=== PATIENT | male | born 1955 | race Caucasian/White ===

== ENCOUNTER 2017-02-12 08:00 | Inpatient (IN) | payer OTHER ==
[2017-02-12 08:47] VITALS: BMI 42.8
[2017-02-19] MEDS ORDERED: CEFAZOLIN/Water 2 GM/20 ML SYRINGE ONE (06:01)
[2017-02-19] MEDS ORDERED: Tranexamic Acid 1,000 MG/100 ML BAG ONE ×2 (06:01→10:52)
[2017-02-19] MEDS ORDERED: Bupivacaine/Epinephrine 0.25% 30 ML VIAL ONE (06:16)
[2017-02-19] MEDS ORDERED: Fentanyl 100 MCG/2 ML VIAL ONE ×5 (06:26→09:41)
[2017-02-19] MEDS ORDERED: Midazolam HCl 2 mg/2 ml Vial ONE (06:26)
[2017-02-19] MEDS ORDERED: Lidocaine 1% (PF) 30 ML VIAL ONE (06:33)
[2017-02-19] MEDS ORDERED: Zolpidem Tartrate 5 MG TAB PO PRN ×3 (07:17→10:22)
[2017-02-19] MEDS ORDERED: traMADol HCl 50 MG TAB PO PRN ×3 (07:17→09:29)
[2017-02-19] MEDS ORDERED: Ondansetron HCl/PF 4 MG/2 ML Vial IVP PRN ×4 (07:17→10:22)
[2017-02-19] MEDS ORDERED: Promethazine HCl 25 MG/ML VIAL IM PRN ×4 (07:17→10:22)
[2017-02-19] MEDS ORDERED: HYDROcodone/Acetaminophen 10/325 mg Tablet PO PRN ×2 (07:17)
[2017-02-19] MEDS ORDERED: Fentanyl 100 MCG/2 ML VIAL IV PRN (07:18)
[2017-02-19] MEDS ORDERED: Bupivacaine PF 0.5% 30 ML VIAL ONE (07:21)
[2017-02-19] MEDS ORDERED: Acetaminophen 325 MG TAB PO PRN (09:29)
[2017-02-19] MEDS ORDERED: diphenhydrAMINE 25 MG CAP PO PRN ×2 (09:29→10:22)
[2017-02-19] MEDS ORDERED: Tranexamic Acid 1,000 MG in Sodium Chloride 0.9% 100 ML IVPB SCH (09:30)
[2017-02-19] MEDS ORDERED: HYDROmorphone 2 MG/ML VIAL SLOW IVP PRN (09:32)
[2017-02-19] MEDS ORDERED: Promethazine HCl 25 MG/ML VIAL SLOW IVP PRN (09:32)
[2017-02-19] MEDS ORDERED: CeleCOXIB 100 MG CAP PO PRN (09:33)
[2017-02-19] MEDS ORDERED: Morphine 4 MG/ML VIAL ONE (09:35)
--- NOTE | 2017-02-19 09:41 | OP ---
DATE OF PROCEDURE: 02/19/2017 PREOPERATIVE DIAGNOSIS: Left knee osteoarthrosis. POSTOPERATIVE DIAGNOSIS: Left knee osteoarthrosis. PROCEDURE PERFORMED: Left total knee replacement using MOBITRAC pin-less navigation. SURGEON: Holden Torres M.D. RESTAURANT SHIFT SUPERVISOR: Archie Lin PA-C. Complications: None. DISPOSITION: He did go to the recovery room in stable condition. ANESTHESIA: He had general anesthetic and he also had a preoperative block. IMPLANTS: Triathlon total knee system to the left knee and we used a size 6 cruciate retaining femur . We used a size 6 universal tibial baseplate. We used a 6 x 9 mm CSX3 tibial bearing and we used a n asymmetric X3 35 x 10 patella. INDICATIONS: A 61-year-old male who had his right knee replaced 2 years ago and at this time he is w anting to have his left knee replaced since everything else has failed to give him good pain relief. PROCEDURE IN DETAIL: After all appropriate consent forms were explained and signed, the patient was taken back to the Operating Room and at this time was given general anesthetic. Once the level of ane sthesia was appropriate, a well-padded tourniquet was placed on the right leg and the leg was then pr epped and draped in standard surgical fashion. The limb was exsanguinated and tourniquet taken up to 300 mmHg. Midline incision was made with a 10 blade down through the skin and subcutaneous tissue. Lance vie electrocautery was used to coagulate any brisk venous bleeding. A new blade was used to make a me dial parapatellar arthrotomy. Small subperiosteal release was performed medially and excess fat pad w as removed. The knee was flexed up to gain access to the femur. The femur was navigated and distal fe moral resection was made. Epicondylar access was used to align our sizing jig and this was pinned in place. We sized our femur to be a size 6, 4:1 cutting block was applied and pinned. Anterior and post erior chamfer cuts were then made. We navigated out our proximal tibia and made our proximal tibial r esection. Spreaders were used to remove any posterior osteophytes off the back of the femur as well a s remaining meniscal tissue. A long alignment tigre was then used to achieve correct rotation of our ti bial baseplate and a size 6 was chosen. This was pinned in place. We trialed the polyethylene and a 6 x 9 mm CSX3 polyethylene gave us full extension and good stability throughout range of motion. Two t owel clips and a saw were used to cut our patella. Three lug nuts were drilled and X3 35 x 10 patella was trialed which sat nicely in the trochlear groove. We then drilled our femur and punched our tibi a. All components were removed. The knee was thoroughly irrigated and dried. Cement was mixed into th e cement gun on the back table. Components were then placed. The knee was held out in full extension until the cement had dried. All excess bone cement was removed. Multiple #2 Vicryl stitches as well as a Quill was used to close our extensor mechanism. 0 Quill followed by a running Monoderm was then used to close the skin. Surgicel glue was then used on the skin. Once this had dried, soft tissue geoff ssing was applied to the limb, tourniquet was let down, and the toes pinked up nicely. The patient w as then awakened and taken to the Recovery Room in stable condition. All counts were correct at the e nd of the case. The patient did receive preoperative IV antibiotics. The patient was injected with Marcaine for postoperative pain relief.
[2017-02-19] MEDS ORDERED: HYDROmorphone 0.5 MG/0.5 ML SYRINGE ONE ×3 (10:08→10:47)
[2017-02-19] MEDS ORDERED: Naloxone HCl 0.4 mg/ml Vial IV PRN (10:22)
[2017-02-19] MEDS ORDERED: Fentanyl 5000 MCG/250 ML CADD IV PRN (10:22)
[2017-02-19] MEDS ORDERED: diphenhydrAMINE 50 MG/ML VIAL IM/IV PRN (10:22)
[2017-02-19] MEDS ORDERED: Fentanyl 20 MCG/ML 250 ML ONE (10:46)
[2017-02-19] MEDS: Sodium Chloride 0.9% 1,000 ML IV SCH ×2 (13:12→19:34)
--- NOTE | 2017-02-19 13:23 | PDOC.PN ---
- Subjective Encounter Start Date: 02/19/17 Encounter Start Time: 13:21 -: old records requested/rev Patient seen and examined. No new complaints. No overnight events - Objective MAR Reviewed: Yes Vital Signs & Weight: Vital Signs (12 hours) Temp Pulse Resp Pulse Ox 02/19/17 12:00 97.9 F 64 20 94 L Weight Weight 325 lb Radiology Reviewed by me: Yes Phys Exam - Physical Examination Constitutional: NAD HEENT: PERRLA, moist MMs, sclera anicteric Neck: no JVD, supple Respiratory: no wheezing, no rales, no rhonchi Cardiovascular: RRR, no significant murmur, no rub Gastrointestinal: soft, non-tender, no distention, positive bowel sounds Musculoskeletal: no edema, pulses present left knee with dressing Neurological: non-focal, normal sensation Lymphatic: no nodes Psychiatric: normal affect, A&O x 3 Skin: no rash, normal turgor Dx/Plan (1) Status post total left knee replacement Code(s): Z96.652 - PRESENCE OF LEFT ARTIFICIAL KNEE JOINT Status: Acute (2) Chronic neck pain Code(s): M54.2 - CERVICALGIA; G89.29 - OTHER CHRONIC PAIN Status: Chronic (3) Gout Code(s): M10.9 - GOUT, UNSPECIFIED Status: Chronic (4) Hypertension Code(s): I10 - ESSENTIAL (PRIMARY) HYPERTENSION Status: Chronic (5) Morbid obesity with BMI of 40.0-44.9, adult Code(s): E66.01 - MORBID (SEVERE) OBESITY DUE TO EXCESS CALORIES; Z68.41 - BODY MASS INDEX (BMI) 40.0-44.9, ADULT Status: Chronic (6) Osteoarthritis Code(s): M19.90 - UNSPECIFIED OSTEOARTHRITIS, UNSPECIFIED SITE Status: Chronic - Plan cont current plan of care, plan discussed w/ family, PT/OT * continue aspirin for DVT prophylaxis * continue home medication * continue PT/OT as per [facility]U protocol * continue Pepcid for GI prophylaxis * medication reviewed as below * symptomatic treatment. Review of Systems - Review of Systems ENT: negative: Ear Pain, Ear Discharge, Nose Pain, Nose Discharge, Nose Congestion, Mouth Pain, Mouth Swelling, Throat Pain, Throat Swelling, Other Respiratory: negative: Cough, Dry, Shortness of Breath, Hemoptysis, SOB with Excertion, Pleuritic Pain, Sputum, Wheezing Cardiovascular: negative: Chest Pain, Palpitations, Orthopnea, Paroxysmal Noc. Dyspnea, Edema, Light Headedness, Other Gastrointestinal: negative: Nausea, Vomiting, Abdominal Pain, Diarrhea, Constipation, Melena, Hematochezia, Other Genitourinary: negative: Dysuria, Frequency, Incontinence, Hematuria, Retention , Other Musculoskeletal: negative: Neck Pain, Shoulder Pain, Arm Pain, Back Pain, Hand Pain, Leg Pain, Foot Pain, Other Skin: negative: Rash, Lesions, Hardeep, Bruising, Other - Medications/Allergies Allergies/Adverse Reactions: Allergies Allergy/AdvReac Type Severity Reaction Status Date / Time No Known Allergies Allergy Verified 02/12/17 08:48 Medications: Current Medications Acetaminophen (Tylenol) 650 mg PO Q4H PRN PRN Reason: CAMPOS/ T > 101F; Mild Pain (1-3) Allopurinol (Zyloprim) 300 mg PO QPM [facility] Amlodipine Besylate (Norvasc) 5 mg PO QPM [facility] Aspirin (Aspirin) 325 mg PO BID [facility] Benazepril HCl (Lotensin) 40 mg PO QPM [facility] Cefazolin Sodium (Ancef) 2 gm SLOW IVP Q8HR [facility] Stop: 02/19/17 22:01 Celecoxib (Celebrex) 200 mg PO BID PRN PRN Reason: Muscle Pain Diphenhydramine HCl (Benadryl) 25 mg IM/IV Q3H PRN PRN Reason: Itching Diphenhydramine HCl (Benadryl) 25 mg PO Q3H PRN PRN Reason: Itching Fentanyl (Fentanyl Cadd) 0 mcg IV INF PRN PRN Reason: Pain Ferrous Gluconate (Fergon) 324 mg PO BID-WM [facility] Gabapentin (Neurontin) 600 mg PO BID [facility] Ropivacaine 250 ml/ Device 250 mls @ 0 mls/hr NERVE BLCK INF [facility] PRN Reason: As Directed Sodium Chloride (Normal Saline 0.9%) 1,000 mls @ 100 mls/hr IV .Q10H [facility] Last Admin: 02/19/17 13:12 Dose: Not Given Vancomycin HCl 2 gm/ Sodium (Chloride) 500 mls @ 250 mls/hr IVPB 1800 [facility] Stop: 02/19/17 19:59 Iron/Minerals/Multivitamins (Theragran M) 1 tab PO DAILY [facility] Naloxone HCl (Narcan) 0.2 mg IV Q5MIN PRN PRN Reason: RR <8 or pt obtun/unarousable Ondansetron HCl (Zofran) 4 mg IVP Q6H PRN PRN Reason: Nausea/Vomiting Promethazine HCl (Phenergan) 12.5 mg IM Q4H PRN PRN Reason: Nausea/Vomiting Senna/Docusate Sodium (Senokot S) 2 tab PO BID RY[facility] Sodium Chloride (Flush - Normal Saline) 10 ml IVF PRN PRN PRN Reason: Saline Flush Zolpidem Tartrate (Ambien) 5 mg PO HSPRN PRN PRN Reason: Insomnia History of Present Illnes - History of Present Illness History of Present Illness: consulted for medical management, s/p left TKR - Past Medical History Cardiac: HTN Musculoskeletal: Osteoarthritis Rheumatologic: Gout - Past Surgical History Past Surgical History: Total Knee Replacement - Past Family History Family History: None - Past Social History Smoke: No Alcohol: None Drugs: None Lives: With Family Domestic Violence: Negative
[2017-02-19] MEDS: CEFAZOLIN/Water 2 GM/20 ML SYRINGE SLOW IVP SCH ×2 (13:54→21:07)
[2017-02-19] MEDS ORDERED: Ropivacaine 0.5% HCl/PF (150 MG/30 ML VIAL) ONE (16:06)
[2017-02-19] MEDS ORDERED: Ropivacaine 0.2% HCl/PF (40 MG/20 ML VIAL) ONE (16:06)
[2017-02-19] MEDS ORDERED: Ondansetron HCl/PF 4 MG/2 ML Vial ONE (16:25)
[2017-02-19] MEDS ORDERED: Lidocaine 1% PF 5 ML VIAL ONE (16:25)
[2017-02-19] MEDS ORDERED: PHENYLEPHRINE-NS 100 MCG/ML 10 ML SYRINGE ONE (16:25)
[2017-02-19] MEDS ORDERED: Propofol 200 MG/20 ML VIAL ONE (16:25)
[2017-02-19] MEDS ORDERED: Ketorolac Tromethamine 30 MG/ML VIAL ONE (16:25)
[2017-02-19] MEDS ORDERED: Multivitamin W/ Minerals 1 TAB PO SCH (21:00)
[2017-02-19] MEDS: Amlodipine 5 MG TAB PO SCH (21:05)
[2017-02-19] MEDS: Gabapentin 300 MG CAP PO SCH (21:06)
[2017-02-19] MEDS: Allopurinol 300 MG TAB PO SCH (21:06)
[2017-02-19] MEDS: Famotidine 20 MG TAB PO SCH (21:06)
[2017-02-19] MEDS: Aspirin 325 MG TAB PO SCH (21:06)
[2017-02-20 04:39] LABS: Hematocrit 39.7 % (42.0-52.0); Mean Platelet Volume 7.7 fL (7.4-10.4); Red Blood Cell (RBC) Count 3.93 mill/uL (4.70-6.10); White Blood Cell (WBC) Count 12.6 thou/uL (4.8-10.8)
[2017-02-20] MEDS: Sodium Chloride 0.9% 1,000 ML IV SCH ×2 (04:43→17:50)
[2017-02-20] MEDS: Aspirin 325 MG TAB PO SCH ×2 (08:03→20:40)
[2017-02-20] MEDS: Famotidine 20 MG TAB PO SCH ×2 (08:03→20:42)
[2017-02-20] MEDS: Ferrous Gluconate 324 MG TAB PO SCH ×2 (08:04→17:50)
[2017-02-20] MEDS: Senokot S 8.6-50 MG TAB PO SCH ×2 (08:04→20:40)
[2017-02-20] MEDS: Gabapentin 300 MG CAP PO SCH ×2 (08:04→20:40)
[2017-02-20] MEDS: Multivitamin W/ Minerals 1 TAB PO SCH (08:04)
--- NOTE | 2017-02-20 12:21 | PDOC.PN ---
- Subjective Encounter Start Date: 02/20/17 Encounter Start Time: 08:15 Patient seen and examined. No new complaints. No overnight events pt has nerve block and HALAL BUTCHER - Objective Resuscitation Status: Resuscitation Status FULL:Full Resuscitation MAR Reviewed: Yes Vital Signs & Weight: Vital Signs (12 hours) Temp Pulse Resp BP Pulse Ox 02/20/17 08:43 97.4 F L 90 18 161/98 H 93 L 02/20/17 08:00 97.4 F L 90 18 93 L 02/20/17 04:00 97.9 F 77 18 155/89 H 94 L Weight Weight 325 lb I&O: 02/19/17 02/20/17 02/21/17 06:59 06:59 06:59 Intake Total 2300 Balance 2300 Result Diagrams: 02/20/17 04:12 Phys Exam - Physical Examination Constitutional: NAD HEENT: PERRLA, moist MMs, sclera anicteric Neck: no JVD, supple Respiratory: no wheezing, no rales, no rhonchi Cardiovascular: RRR, no significant murmur, no rub Gastrointestinal: soft, non-tender, no distention, positive bowel sounds Musculoskeletal: no edema, pulses present left knee with dressing Neurological: non-focal, normal sensation, moves all 4 limbs Psychiatric: normal affect, A&O x 3 Skin: no rash, normal turgor Dx/Plan (1) Status post total left knee replacement Code(s): Z96.652 - PRESENCE OF LEFT ARTIFICIAL KNEE JOINT Status: Acute (2) Chronic neck pain Code(s): M54.2 - CERVICALGIA; G89.29 - OTHER CHRONIC PAIN Status: Chronic (3) Gout Code(s): M10.9 - GOUT, UNSPECIFIED Status: Chronic (4) Hypertension Code(s): I10 - ESSENTIAL (PRIMARY) HYPERTENSION Status: Chronic (5) Morbid obesity with BMI of 40.0-44.9, adult Code(s): E66.01 - MORBID (SEVERE) OBESITY DUE TO EXCESS CALORIES; Z68.41 - BODY MASS INDEX (BMI) 40.0-44.9, ADULT Status: Chronic (6) Osteoarthritis Code(s): M19.90 - UNSPECIFIED OSTEOARTHRITIS, UNSPECIFIED SITE Status: Chronic (7) Macrocytic anemia Code(s): D53.9 - NUTRITIONAL ANEMIA, UNSPECIFIED Status: Chronic - Plan cont current plan of care, plan discussed w/ family, PT/OT * continue HALAL BUTCHER and patient's pain controlled * continue nerve block as per anesthesia * continue aspirin for DVT prophylaxis * continue pepcid for GI prophylaxis * medication reviewed as below * symptomatic treatment * continue PT/OT as per [facility] protocol treatment. * discussed with bedside Review of Systems - Review of Systems ENT: negative: Ear Pain, Ear Discharge, Nose Pain, Nose Discharge, Nose Congestion, Mouth Pain, Mouth Swelling, Throat Pain, Throat Swelling, Other Respiratory: negative: Cough, Dry, Shortness of Breath, Hemoptysis, SOB with Excertion, Pleuritic Pain, Sputum, Wheezing Cardiovascular: negative: Chest Pain, Palpitations, Orthopnea, Paroxysmal Noc. Dyspnea, Edema, Light Headedness, Other Gastrointestinal: negative: Nausea, Vomiting, Abdominal Pain, Diarrhea, Constipation, Melena, Hematochezia, Other Genitourinary: negative: Dysuria, Frequency, Incontinence, Hematuria, Retention , Other Musculoskeletal: negative: Neck Pain, Shoulder Pain, Arm Pain, Back Pain, Hand Pain, Leg Pain, Foot Pain, Other Skin: negative: Rash, Lesions, Hardeep, Bruising, Other - Medications/Allergies Allergies/Adverse Reactions: Allergies Allergy/AdvReac Type Severity Reaction Status Date / Time No Known Allergies Allergy Verified 02/12/17 08:48 Medications: Current Medications Acetaminophen (Tylenol) 650 mg PO Q4H PRN PRN Reason: CAMPOS/ T > 101F; Mild Pain (1-3) Last Admin: 02/20/17 08:06 Dose: 650 mg Allopurinol (Zyloprim) 300 mg PO QPM [facility] Last Admin: 02/19/17 21:06 Dose: 300 mg Amlodipine Besylate (Norvasc) 5 mg PO QPM [facility] Last Admin: 02/19/17 21:05 Dose: 5 mg Aspirin (Aspirin) 325 mg PO BID [facility] Last Admin: 02/20/17 08:03 Dose: 325 mg Benazepril HCl (Lotensin) 40 mg PO QPM [facility] Last Admin: 02/19/17 21:04 Dose: 40 mg Celecoxib (Celebrex) 200 mg PO BID PRN PRN Reason: Muscle Pain Diphenhydramine HCl (Benadryl) 25 mg IM/IV Q3H PRN PRN Reason: Itching Diphenhydramine HCl (Benadryl) 25 mg PO Q3H PRN PRN Reason: Itching Famotidine (Pepcid) 20 mg PO BID [facility] Last Admin: 02/20/17 08:03 Dose: 20 mg Fentanyl (Fentanyl Cadd) 0 mcg IV INF PRN PRN Reason: Pain Ferrous Gluconate (Fergon) 324 mg PO BID-WM [facility] Last Admin: 02/20/17 08:04 Dose: 324 mg Gabapentin (Neurontin) 600 mg PO BID [facility] Last Admin: 02/20/17 08:04 Dose: 600 mg Ropivacaine 250 ml/ Device 250 mls @ 0 mls/hr NERVE BLCK INF [facility] PRN Reason: As Directed Sodium Chloride (Normal Saline 0.9%) 1,000 mls @ 100 mls/hr IV .Q10H [facility] Last Admin: 02/20/17 04:43 Dose: Not Given Iron/Minerals/Multivitamins (Theragran M) 1 tab PO DAILY [facility] Last Admin: 02/20/17 08:04 Dose: 1 tab Naloxone HCl (Narcan) 0.2 mg IV Q5MIN PRN PRN Reason: RR <8 or pt obtun/unarousable Ondansetron HCl (Zofran) 4 mg IVP Q6H PRN PRN Reason: Nausea/Vomiting Promethazine HCl (Phenergan) 12.5 mg IM Q4H PRN PRN Reason: Nausea/Vomiting Senna/Docusate Sodium (Senokot S) 2 tab PO BID [facility] Last Admin: 02/20/17 08:04 Dose: 2 tab Sodium Chloride (Flush - Normal Saline) 10 ml IVF PRN PRN PRN Reason: Saline Flush Zolpidem Tartrate (Ambien) 5 mg PO HSPRN PRN PRN Reason: Insomnia
[2017-02-20] MEDS: Ropivacaine HCl/PF 250 ML in Premix Bag 1 BAG NERVE BLCK SCH (12:27)
[2017-02-20] MEDS: Amlodipine 5 MG TAB PO SCH (20:41)
[2017-02-20] MEDS: Allopurinol 300 MG TAB PO SCH (20:41)
[2017-02-21] MEDS: Sodium Chloride 0.9% 1,000 ML IV SCH ×3 (00:36→20:21)
[2017-02-21 05:28] LABS: Hematocrit 38.1 % (42.0-52.0); Mean Platelet Volume 8.1 fL (7.4-10.4); Red Blood Cell (RBC) Count 3.72 mill/uL (4.70-6.10); White Blood Cell (WBC) Count 12.4 thou/uL (4.8-10.8)
--- NOTE | 2017-02-21 10:26 | PRG ---
DATE OF ADMISSION: 02/19/2017 DATE OF DISCHARGE: 02/21/2017 PRIMARY CARE PHYSICIAN: Fabricio Villalta M.D. DISCHARGE DISPOSITION: Home. PRIMARY DISCHARGE DIAGNOSIS: Status post total left knee replacement. SECONDARY DISCHARGE DIAGNOSES: Chronic neck pain, gout, hypertension, macrocytic anemia, morbid obes ity with body mass index 42, and osteoarthritis. PRIMARY PROCEDURE/OPERATION: Left total knee replacement. RADIOLOGICAL INVESTIGATION: None. SIGNIFICANT LABORATORY DATA: WBC 12.4, hemoglobin 12.6, platelets 165. DISCHARGE MEDICATIONS: The patient will have aspirin 325 mg p.o. b.i.d. for DVT prophylaxis. Rest o f medications will be continued as per previous. The patient was on following medications; Zyloprim 300 mg p.o. daily, amlodipine with benazepril 5/40 one capsule p.o. daily, gabapentin 600 mg twice da cameron, Centrum Silver 1 tablet p.o. daily, tramadol 100 mg p.o. b.i.d., pain medication will be given b y primary team. CONTRAINDICATIONS: None. CODE STATUS: FULL CODE. INPATIENT CONSULTANTS: Dr. Melissa Hatch was primary while in hospital who did knee replacement. Caitlin avila team was consulted for medical management. TEST RESULTS PENDING ON DISCHARGE: None. ALLERGIES: No known drug allergy. DISCHARGE PLAN: Post hospital, patient is going to follow up with Dr. Torres on 02/28/2017 at 1:30 p.m . The patient will make appointment with primary care physician. HOSPITAL COURSE: A 62-year-old male with the above mentioned medical problems who was admitted by Dr Tanvi Torres electively for left total knee replacement which was done on admission on 02/19/2017 without a ny complication. Postoperatively, a [facility] team was consulted for medical management . The patient's all medical problems remained stable. His pain was controlled with PRINTING [employer]. He also ascencio d nerve block while in hospital. He was given aspirin for DVT prophylaxis. The patient's pain remai calista well controlled while in hospital. He also did relatively well with physical therapy. The patient is seen and examined at bedside today. Review of systems reviewed with him and negative. Plan of care discussed with the patient's . At this point, this patient does not need any medi [facility] care and whenever primary team discharging him home, then he will be discharged with his previous medications. Pain medication prescription will be from the primary team. PHYSICAL EXAMINATION: VITAL SIGNS: Today, temperature 97.8, pulse 68, respiratory rate 16, saturation 93%, blood pressure 130/84, weight 325 pounds. GENERAL: The patient is currently alert, awake, no obvious acute distress. HEAD: Normocephalic, atraumatic. LUNGS: Clear to auscultation without any rhonchi or rales. CARDIAC: S1, S2 regular without any murmur. ABDOMEN: Soft and benign without any tenderness. EXTREMITIES: No edema. Good distal pulsations. Surgical site is clean and healthy. NEUROLOGIC: Nonfocal examination. Today we will sign off.
[2017-02-21] MEDS ORDERED: HYDROcodone/Acetaminophen 10/325 mg Tablet PO PRN (10:42)
[2017-02-21] MEDS: Gabapentin 300 MG CAP PO SCH ×2 (10:46→20:07)
[2017-02-21] MEDS: Aspirin 325 MG TAB PO SCH ×2 (10:46→20:10)
[2017-02-21] MEDS: Multivitamin W/ Minerals 1 TAB PO SCH (10:46)
[2017-02-21] MEDS: Ferrous Gluconate 324 MG TAB PO SCH ×2 (10:46→17:14)
[2017-02-21] MEDS: Senokot S 8.6-50 MG TAB PO SCH ×2 (10:47→20:07)
[2017-02-21] MEDS: Famotidine 20 MG TAB PO SCH ×2 (10:56→20:10)
[2017-02-21] MEDS ORDERED: Fentanyl 100 MCG/2 ML VIAL SLOW IVP PRN (13:28)
[2017-02-21] MEDS: Ropivacaine HCl/PF 250 ML in Premix Bag 1 BAG NERVE BLCK SCH (15:45)
[2017-02-21] MEDS: Allopurinol 300 MG TAB PO SCH (20:07)
[2017-02-21] MEDS: HYDROcodone/Acetaminophen 10/325 mg Tablet PO PRN (20:08)
[2017-02-21] MEDS: Amlodipine 5 MG TAB PO SCH (20:09)
[2017-02-22] MEDS: HYDROcodone/Acetaminophen 10/325 mg Tablet PO PRN ×3 (03:26→14:05)
[2017-02-22 05:18] LABS: Hematocrit 37.4 % (42.0-52.0); Mean Platelet Volume 8.1 fL (7.4-10.4); Red Blood Cell (RBC) Count 3.67 mill/uL (4.70-6.10); White Blood Cell (WBC) Count 12.6 thou/uL (4.8-10.8)
[2017-02-22] MEDS: Sodium Chloride 0.9% 1,000 ML IV SCH (06:28)
[2017-02-22] MEDS: Gabapentin 300 MG CAP PO SCH (08:03)
[2017-02-22] MEDS: Senokot S 8.6-50 MG TAB PO SCH (08:03)
[2017-02-22] MEDS: Famotidine 20 MG TAB PO SCH (08:03)
[2017-02-22] MEDS: Multivitamin W/ Minerals 1 TAB PO SCH (08:03)
[2017-02-22] MEDS: Ferrous Gluconate 324 MG TAB PO SCH (08:04)
[2017-02-22] MEDS: Aspirin 325 MG TAB PO SCH (08:04)
[2017-02-22 15:25] VITALS: BP 144/82; TEMP 98.2
== END 2017-02-22 15:30 | disposition home or self-care (01) | DRG 470 ==
LOC: SURG A 02-19 05:34 → SJJU 02-19 14:35
PROVIDERS: ADMIT Orthopaedic Surgery; ATTEND Orthopaedic Surgery
PROC: 0SRD0J9 Replacement of Left Knee Joint with Synthetic Substitute, Cemented, Open Approach (ICD-10-PCS; principal; 2017-02-19)
PROC: 3E0T3BZ Introduction of Anesthetic Agent into Peripheral Nerves and Plexi, Percutaneous Approach (ICD-10-PCS; 2017-02-19)
DX: M17.12 Unilateral primary osteoarthritis, left knee (principal); Z68.41 Body mass index [BMI] 40.0-44.9, adult; I10 Essential (primary) hypertension; G89.29 Other chronic pain; M54.2 Cervicalgia; M10.9 Gout, unspecified; D53.9 Nutritional anemia, unspecified; E66.01 Morbid (severe) obesity due to excess calories; F17.220 Nicotine dependence, chewing tobacco, uncomplicated
CPT/HCPCS: 36415; 85027; C1713; C1776; G8978-GP-CJ; G8979-GP-CJ; J1170; J1885; J2001; J2250; J2270; J2405; J2704; J2795; J3010; J3370; J7050; S0020

== ENCOUNTER 2017-02-12 08:41 | Outpatient (CLI) | payer OTHER ==
[2017-02-12 09:58] LABS: #Basophils 0.1 thou/uL (0.0-0.2); #Eosinphils 0.2 thou/uL (0.0-0.7); #Lymphocytes 2.3 thou/uL (1.20-3.40); #Monocytes 0.9 thou/uL (0.11-0.59); #Neutrophils 6.2 thou/uL (1.40-6.50); %Basophils 0.6 % (0.0-1.0); %Lymphocytes 23.6 % (21.0-51.0); %Monocytes 8.9 % (0.0-10.0); Hematocrit 43.9 % (42.0-52.0); Red Blood Cell (RBC) Count 4.43 mill/uL (4.70-6.10); White Blood Cell (WBC) Count 9.6 thou/uL (4.8-10.8)
[2017-02-12 10:09] LABS: PTT 29.6 SEC (22.9-36.1)
[2017-02-12 10:11] LABS: Bilirubin Negative (Negative); Blood, Urine Negative (Negative); Glucose, Urine (Dipstick) Negative (Negative); Ketone, Urine Negative (Negative); Nitrite Negative (Negative); Protein, Urine (Dipstick) Negative (Neg-Trace); Urobilinogen 0.2 mg/dL (0.2-1.0)
[2017-02-12 10:13] LABS: Bacteria/HPF None Seen HPF (None Seen); Hyaline Casts/LPF 0-3 HYALINE CAST LPF (0-3 Hyaline); RBC/HPF 0-3 HPF (0-3); Squamous Epithelial None Seen HPF (0-3); WBC/HPF None Seen HPF (0-3)
[2017-02-12 10:17] LABS: Anion Gap 12 mmol/L (10-20); BUN (Urea Nitrogen) 39 mg/dL (8.4-25.7); Calc. Creatinine Clearance 0 mL/min (70-130); Calcium 9.7 mg/dL (7.8-10.44); Carbon Dioxide 26 mmol/L (23-31); Chloride 108 mmol/L (98-107); Estimated GFR-MDRD 56
--- NOTE | 2017-02-12 13:38 | RAD ---
LEFT KNEE: Three views HISTORY: Preoperative evaluation. FINDINGS: Severe degenerative changes of the left knee noted. There is complete loss of the medial joint space . Prominent hypertrophic change is seen from all joint compartments. There is evidence of small chantel nt effusion. IMPRESSION: Severe degenerative changes noted. POS: VICKY
== END 2017-02-12 08:42 | disposition home or self-care (01) ==
LOC: LABBT 08:41
PROVIDERS: ATTEND Orthopaedic Surgery
DX: Z01.818 Encounter for other preprocedural examination (principal); M17.12 Unilateral primary osteoarthritis, left knee
CPT/HCPCS: 80048; 81001; 85025; 85610; 85730; 86850; 86900; 86901; 93005; 93010

== ENCOUNTER 2018-12-27 07:18 | Day surgery (SDC) | payer MEDICARE ==
[2018-12-26 10:34] VITALS: BMI 51.4
[2018-12-27] MEDS ORDERED: Midazolam HCl 2 mg/2 ml Vial ONE (09:34)
--- NOTE | 2018-12-27 16:01 | OP ---
DATE OF PROCEDURE: 12/27/2018 PREPROCEDURE DIAGNOSIS: Screening colonoscopy, average risk. POSTPROCEDURE DIAGNOSES: 1. Three diminutive polyps in the ascending colon, removed by cold snare polypectomy. 2. One 5-mm polyp in the descending and one 5-mm polyp in the sigmoid, both removed by snare polypectomy. RECOMMENDATIONS: 1. Await histopathology. 2. Repeat colonoscopy in 3 years. ANESTHESIA: TIVA. PROCEDURE IN DETAIL: The patient was informed of the risks, benefits, and possible complications of endoscopy including perforation, bleeding, reaction to medication, and aspiration. Informed consent was obtained. The patient was brought to endoscopy suite, where he was sedated in gradual fashion. Once he was comfortable, rectal examination was performed, which was normal. Perianal exam was normal. The endoscope was then advanced through the anal canal through the colon to cecum, which was identified by the ileocecal valve and appendiceal orifice. The prep was good. The patient tolerated the procedure well. Three diminutive polyps were found in the ascending colon, removed by cold snare polypectomy and retrieved. There was one polyp in the descending and one in the sigmoid, both of which were about 5 mm in size and sessile, both removed by cold snare polypectomy and submitted to Pathology. Retroflexed views in the rectum were normal. Otherwise exam was normal. The scope was removed. The patient tolerated the procedure well. There were no complications. Job ID: [id number]
== END 2018-12-27 11:35 | disposition home or self-care (01) ==
LOC: SDC 07:18
PROVIDERS: ATTEND Internal Medicine Gastroenterology
PROC: 0DBK8ZZ Excision of Ascending Colon, Via Natural or Artificial Opening Endoscopic (ICD-10-PCS; principal; 2018-12-27)
PROC: 0DBN8ZZ Excision of Sigmoid Colon, Via Natural or Artificial Opening Endoscopic (ICD-10-PCS; 2018-12-27)
PROC: 0DBM8ZZ Excision of Descending Colon, Via Natural or Artificial Opening Endoscopic (ICD-10-PCS; 2018-12-27)
DX: Z12.11 Encounter for screening for malignant neoplasm of colon (principal); D12.2 Benign neoplasm of ascending colon; D12.5 Benign neoplasm of sigmoid colon; Z79.82 Long term (current) use of aspirin; Z79.899 Other long term (current) drug therapy
CPT/HCPCS: 88305; J2250